=== PATIENT | male | born 1985 | race Caucasian/White ===

== ENCOUNTER 2016-03-24 22:12 | Emergency (ER) | payer MEDICARE, MEDICAID | END 2016-03-25 00:23 | disposition home or self-care (01) | LOC: MADERS 22:12 | DX: S61.210A Laceration without foreign body of right index finger without damage to nail, initial encounter (principal); E11.9 Type 2 diabetes mellitus without complications; Z79.84 Long term (current) use of oral hypoglycemic drugs; W26.0XXA Contact with knife, initial encounter | CPT/HCPCS: 12001 ==

== ENCOUNTER 2018-03-01 09:39 | Outpatient (CLI) | payer MEDICARE, MEDICAID ==
--- NOTE | 2018-03-01 11:35 | RAD ---
PA AND LATERAL CHEST RADIOGRAPH: Date: 03-01-18 History: Upper respiratory tract infection with cough and congestion. Comparison: None available. FINDINGS: Post-surgical changes related to median sternotomy and cardiac valve replacement are noted. The cardi ac silhouette is mildly enlarged. The pulmonary vasculature is within normal limits. The lungs are cl ear. Osseous structures appear intact. IMPRESSION: 1. No acute cardiopulmonary process. 2. Mild cardiomegaly. POS: MARTY
== END 2018-03-01 09:40 | disposition home or self-care (01) ==
LOC: MADRAD 09:39
PROVIDERS: ATTEND Family Medicine
DX: J06.9 Acute upper respiratory infection, unspecified (principal); I51.7 Cardiomegaly
CPT/HCPCS: 71046

== ENCOUNTER 2020-12-14 09:24 | Emergency (ER) | payer MEDICARE, MEDICAID | END 2020-12-14 11:00 | disposition home or self-care (01) | LOC: MADERS 09:24 | DX: T81.41XA Infection following a procedure, superficial incisional surgical site, initial encounter (principal); E11.9 Type 2 diabetes mellitus without complications | CPT/HCPCS: 87070; 87077; 87186; 87205 ==